=== PATIENT | female | born 1965 | race Caucasian/White ===

== ENCOUNTER → 2018-02-10 | Outpatient (CLI) | payer SELFPAY ==
--- NOTE | 2018-02-23 12:15 | RADIOLOGY IMAGING REPORT ---
FACILITY: [facility] PATIENT NAME: JOSTIN ALEJO : [id number] MR: [id number] V: [id number] EXAM DATE: [id number] ORDERING PHYSICIAN: ALVARADO SAENZ TECHNOLOGIST: Elizabeth Penn PROCEDURE:BILATERAL DIGITAL SCREENING MAMMOGRAM WITH CAD ASSISTED INTERPRETATION & 3D TOMOSYNTHESIS COMPARISON:None. INDICATIONS:SCREENING FINDINGS: Previous outside mammograms have just become available for comparison and were dated 02/09/12. The breasts are heterogeneously dense which may obscure small masses. In the lateral portion of the Left breast on the Left CC view at the junction of the middle and posterior 1/3 there is a focal area of architectural distortion for which Spot compression view is recommended. This is best appreciated on Tomographic slice 35 of the Left CC view. DIAGNOSTIC CATEGORY 0--INCOMPLETE: NEED ADDITIONAL IMAGING EVALUATION. RECOMMENDATIONS: ADDITIONAL MAMMOGRAPHIC VIEWS REQUIRED: LEFT BREAST. IMPRESSION: BIRADS 0: Incomplete. Additional views of the Left breast recommended as described. Dictated by: Almiat Rosales M.D. on 02/23/2018 at 9:10 Transcribed by: ELENA on 02/23/2018 at 10:41 Approved by: Almita Rosales M.D. on 02/23/2018 at 12:14 [facility]
== END ==
LOC: MAMO 14:19
PROVIDERS: ATTEND Nurse Practitioner Family
DX: R92.2 Inconclusive mammogram (principal)
CPT/HCPCS: 77063; 77067

== ENCOUNTER → 2018-05-04 | Outpatient (CLI) | payer OTHER ==
--- NOTE | 2018-05-04 17:16 | RADIOLOGY IMAGING REPORT ---
FACILITY: [facility] PATIENT NAME: JOSTIN ALEJO : [id number] MR: [id number] V: [id number] EXAM DATE: [id number] ORDERING PHYSICIAN: ALVARADO SAENZ TECHNOLOGIST: Elizabeth Penn PROCEDURE:LEFT DIGITAL DIAGNOSTIC MAMMOGRAM WITH CAD ASSISTED INTERPRETATION & 3D TOMOSYNTHESIS COMPARISON:Prior mammograms 02/10/18, 02/09/12. INDICATIONS:FURTHER EVAL FINDINGS: The patient returns for Spot compression view in the Left CC projection and a mediolateral view of the Left breast. The previously noted focal area of increased density in the lateral portion of the Left breast on the recent Left CC view appeared compressible and apparently represented a summation shadow. There was no demonstration of malignant appearing mass or calcification in the Left breast. DIAGNOSTIC CATEGORY 2--BENIGN FINDING. RECOMMENDATIONS: ROUTINE MAMMOGRAM AND CLINICAL EVALUATION. IMPRESSION: BIRADS 2: Benign finding. No significant abnormality is seen in the Left breast. Dictated by: Almita Rosales M.D. on 05/04/2018 at 11:53 Transcribed by: ELENA on 05/04/2018 at 13:27 Approved by: Almita Rosales M.D. on 05/04/2018 at 17:14 [facility]
== END ==
LOC: US 03-29 03:48 → MAMO 06:55
PROVIDERS: ATTEND Nurse Practitioner Family
DX: R92.2 Inconclusive mammogram (principal)
CPT/HCPCS: 77061; 77065